=== PATIENT | female | born 1940 | race Caucasian/White ===

== ENCOUNTER → 2017-01-02 | Outpatient (CLI) | payer MEDICARE, OTHER ==
[~2017-01-02] MED LIST: ASPIRIN81 MG PO; BENTYL20 MG PO; BREO ELLIPTA 11 EACH INH; CALTRATE 600 WI1 TAB PO; CELEBREX200 MG PO; CENTRUM CHEWAB1 EACH PO; CENTRUM SILVER1 EAC1 PO; CLARITIN-D 121 EACH PO; COLESTID1 G1 PO; CYMBALTA30 MG PO; ESTRACE0.5 MG PO; FISH OIL1 GM PO; FLONASE16 GM NASBOTH; KLONOPIN1 MG PO; LAMICTAL200 MG PO; LIPITOR10 MG PO; MS CONTIN30 MG PO; NORVASC5 MG PO; PERCOCET 325-51 TAB PO; PLAQUENIL200 MG PO; PROAIR HFA8.5 GM INH; PROLIA60 MG/1 ML SUBCUT; PROTONIX40 M1 PO; PROVENTIL2.5 MG/3 M INH; SEROQUEL25 MG PO; SYNTHROID25 MCG PO; SYSTANE 0.3-0.440 ML EYEBOTH; ULTRAM50 MG PO; VITAMIN D31000 UNI1 PO; XIFAXAN200 MG PO
== END | disposition short-term general hospital (02) ==
LOC: CLPAIN 10:21
DX: M48.06 Spinal stenosis, lumbar region (principal); M47.816 Spondylosis without myelopathy or radiculopathy, lumbar region; M70.70 Other bursitis of hip, unspecified hip; Z79.891 Long term (current) use of opiate analgesic

== ENCOUNTER 2017-01-16 14:00 | Day surgery (SDC) | payer MEDICARE, OTHER ==
[~2017-01-16 14:00] MED LIST changes: -CENTRUM SILVER1 EAC1 PO; -NORVASC5 MG PO; -PROVENTIL2.5 MG/3 M INH; -SEROQUEL25 MG PO; -ULTRAM50 MG PO; -XIFAXAN200 MG PO
[2017-04-28] MEDS ORDERED: ULTRAM50 MG PO (01:58)
[2017-04-28] MEDS ORDERED: PROVENTIL2.5 MG/3 M INH (01:59)
[2017-04-28] MEDS ORDERED: SEROQUEL25 MG PO (02:00)
[2017-05-22] MEDS ORDERED: CENTRUM SILVER1 EAC1 PO (15:49)
[2017-05-23] MEDS ORDERED: XIFAXAN200 MG PO (13:37)
[2017-05-23] MEDS ORDERED: BREO ELLIPTA 11 EACH INH (13:51)
== END 2017-01-16 16:12 | disposition short-term general hospital (02) ==
LOC: SURGOP 14:00
PROC: 3E0U3BZ Introduction of Anesthetic Agent into Joints, Percutaneous Approach (ICD-10-PCS; principal; 2017-01-16)
PROC: 3E0U33Z Introduction of Anti-inflammatory into Joints, Percutaneous Approach (ICD-10-PCS; 2017-01-16)
DX: M70.71 Other bursitis of hip, right hip (principal); M70.72 Other bursitis of hip, left hip; F41.9 Anxiety disorder, unspecified; M19.90 Unspecified osteoarthritis, unspecified site; M47.816 Spondylosis without myelopathy or radiculopathy, lumbar region; G89.28 Other chronic postprocedural pain
CPT/HCPCS: J1040; J3301; Q9967

== ENCOUNTER 2017-01-23 19:23 | Emergency (ER) | payer MEDICARE, OTHER ==
[~2017-01-23] VITALS: Ht 147.3 cm; Wt 50.3 kg
[2017-04-28] MEDS ORDERED: ULTRAM50 MG PO (01:58)
[2017-04-28] MEDS ORDERED: PROVENTIL2.5 MG/3 M INH (01:59)
[2017-04-28] MEDS ORDERED: SEROQUEL25 MG PO (02:00)
[2017-05-22] MEDS ORDERED: CENTRUM SILVER1 EAC1 PO (15:49)
[2017-05-23] MEDS ORDERED: XIFAXAN200 MG PO (13:37)
[2017-05-23] MEDS ORDERED: BREO ELLIPTA 11 EACH INH (13:51)
== END 2017-01-23 21:00 | disposition short-term general hospital (02) ==
LOC: ER 19:23
DX: S12.000A Unspecified displaced fracture of first cervical vertebra, initial encounter for closed fracture (principal); S00.03XA Contusion of scalp, initial encounter; S50.312A Abrasion of left elbow, initial encounter; S50.311A Abrasion of right elbow, initial encounter; S40.212A Abrasion of left shoulder, initial encounter; S40.211A Abrasion of right shoulder, initial encounter; W10.9XXA Fall (on) (from) unspecified stairs and steps, initial encounter; Z79.82 Long term (current) use of aspirin; Z79.899 Other long term (current) drug therapy; J44.9 Chronic obstructive pulmonary disease, unspecified; F32.9 Major depressive disorder, single episode, unspecified; F41.9 Anxiety disorder, unspecified; K21.9 Gastro-esophageal reflux disease without esophagitis; E78.00 Pure hypercholesterolemia, unspecified; I10 Essential (primary) hypertension; E03.9 Hypothyroidism, unspecified; M19.90 Unspecified osteoarthritis, unspecified site; M10.9 Gout, unspecified; Z87.891 Personal history of nicotine dependence
CPT/HCPCS: J2270

== ENCOUNTER 2017-01-31 12:42 | Emergency (ER) | payer MEDICARE, OTHER ==
[~2017-01-31] VITALS: Ht 154.9 cm; Wt 50.3 kg
[2017-04-28] MEDS ORDERED: ULTRAM50 MG PO (01:58)
[2017-04-28] MEDS ORDERED: PROVENTIL2.5 MG/3 M INH (01:59)
[2017-04-28] MEDS ORDERED: SEROQUEL25 MG PO (02:00)
[2017-05-22] MEDS ORDERED: CENTRUM SILVER1 EAC1 PO (15:49)
[2017-05-23] MEDS ORDERED: XIFAXAN200 MG PO (13:37)
[2017-05-23] MEDS ORDERED: BREO ELLIPTA 11 EACH INH (13:51)
== END 2017-01-31 13:22 | disposition short-term general hospital (02) ==
LOC: ER 12:42
DX: R53.1 Weakness (principal); R52 Pain, unspecified; S12.000D Unspecified displaced fracture of first cervical vertebra, subsequent encounter for fracture with routine healing; J44.9 Chronic obstructive pulmonary disease, unspecified; F32.9 Major depressive disorder, single episode, unspecified; F41.9 Anxiety disorder, unspecified; E78.5 Hyperlipidemia, unspecified; I10 Essential (primary) hypertension; E03.9 Hypothyroidism, unspecified; Z90.49 Acquired absence of other specified parts of digestive tract; Z90.710 Acquired absence of both cervix and uterus; Z98.890 Other specified postprocedural states; Z87.891 Personal history of nicotine dependence; Z88.5 Allergy status to narcotic agent; Z88.2 Allergy status to sulfonamides; Z88.1 Allergy status to other antibiotic agents; Z88.8 Allergy status to other drugs, medicaments and biological substances; Z79.899 Other long term (current) drug therapy; Z79.82 Long term (current) use of aspirin; W18.30XA Fall on same level, unspecified, initial encounter

== ENCOUNTER → 2017-02-20 | Outpatient (CLI) | payer MEDICARE, OTHER ==
[~2017-02-20] MED LIST changes: +CENTRUM SILVER1 EAC1 PO; +NORVASC5 MG PO; +PROVENTIL2.5 MG/3 M INH; +SEROQUEL25 MG PO; +ULTRAM50 MG PO; +XIFAXAN200 MG PO
== END | disposition short-term general hospital (02) ==
LOC: CLPAIN 01:08
DX: M70.70 Other bursitis of hip, unspecified hip (principal); M48.06 Spinal stenosis, lumbar region; M47.816 Spondylosis without myelopathy or radiculopathy, lumbar region; G89.28 Other chronic postprocedural pain

== ENCOUNTER → 2017-02-23 | Outpatient (CLI) | payer MEDICARE, OTHER | END | disposition short-term general hospital (02) | LOC: CLNEUR 10:12 | DX: S12.000D Unspecified displaced fracture of first cervical vertebra, subsequent encounter for fracture with routine healing (principal); S13.140D Subluxation of C3/C4 cervical vertebrae, subsequent encounter; M47.892 Other spondylosis, cervical region ==

== ENCOUNTER → 2017-03-31 | Outpatient (CLI) | payer MEDICARE, OTHER | END | disposition short-term general hospital (02) | LOC: CLENT 08:49 | DX: J31.0 Chronic rhinitis (principal); J44.9 Chronic obstructive pulmonary disease, unspecified; Z72.0 Tobacco use ==

== ENCOUNTER 2017-04-03 12:28 | Day surgery (SDC) | payer MEDICARE, OTHER ==
[~2017-04-03 12:28] MED LIST changes: -CENTRUM SILVER1 EAC1 PO; -NORVASC5 MG PO; -PROVENTIL2.5 MG/3 M INH; -SEROQUEL25 MG PO; -ULTRAM50 MG PO; -XIFAXAN200 MG PO
[2017-04-28] MEDS ORDERED: ULTRAM50 MG PO (01:58)
[2017-04-28] MEDS ORDERED: PROVENTIL2.5 MG/3 M INH (01:59)
[2017-04-28] MEDS ORDERED: SEROQUEL25 MG PO (02:00)
[2017-05-22] MEDS ORDERED: CENTRUM SILVER1 EAC1 PO (15:49)
[2017-05-23] MEDS ORDERED: XIFAXAN200 MG PO (13:37)
[2017-05-23] MEDS ORDERED: BREO ELLIPTA 11 EACH INH (13:51)
== END 2017-04-03 13:53 | disposition short-term general hospital (02) ==
LOC: SURGOP 12:28
PROC: 3E0U3BZ Introduction of Anesthetic Agent into Joints, Percutaneous Approach (ICD-10-PCS; principal; 2017-04-03)
PROC: 3E0U33Z Introduction of Anti-inflammatory into Joints, Percutaneous Approach (ICD-10-PCS; 2017-04-03)
DX: M70.71 Other bursitis of hip, right hip (principal); M19.90 Unspecified osteoarthritis, unspecified site; G89.28 Other chronic postprocedural pain; M48.06 Spinal stenosis, lumbar region; M47.816 Spondylosis without myelopathy or radiculopathy, lumbar region; J44.9 Chronic obstructive pulmonary disease, unspecified; K21.9 Gastro-esophageal reflux disease without esophagitis; E78.00 Pure hypercholesterolemia, unspecified; I10 Essential (primary) hypertension; E03.9 Hypothyroidism, unspecified; M81.0 Age-related osteoporosis without current pathological fracture; Z88.6 Allergy status to analgesic agent; Z87.891 Personal history of nicotine dependence; Z88.1 Allergy status to other antibiotic agents; Z88.2 Allergy status to sulfonamides; Z79.82 Long term (current) use of aspirin; Z79.891 Long term (current) use of opiate analgesic; Z79.899 Other long term (current) drug therapy
CPT/HCPCS: J1040

== ENCOUNTER 2017-04-09 14:21 | Emergency (ER) | payer MEDICARE, OTHER ==
[~2017-04-09] VITALS: Ht 137.2 cm; Wt 49.9 kg
[2017-04-09] MEDS ORDERED: NORVASC5 MG PO (16:26)
[2017-04-28] MEDS ORDERED: ULTRAM50 MG PO (01:58)
[2017-04-28] MEDS ORDERED: PROVENTIL2.5 MG/3 M INH (01:59)
[2017-04-28] MEDS ORDERED: SEROQUEL25 MG PO (02:00)
[2017-05-22] MEDS ORDERED: CENTRUM SILVER1 EAC1 PO (15:49)
[2017-05-23] MEDS ORDERED: XIFAXAN200 MG PO (13:37)
[2017-05-23] MEDS ORDERED: BREO ELLIPTA 11 EACH INH (13:51)
== END 2017-04-09 16:07 | disposition short-term general hospital (02) ==
LOC: ER 14:21
DX: R20.2 Paresthesia of skin (principal); I10 Essential (primary) hypertension; F41.9 Anxiety disorder, unspecified; F17.200 Nicotine dependence, unspecified, uncomplicated; Z88.5 Allergy status to narcotic agent; Z88.1 Allergy status to other antibiotic agents; Z88.8 Allergy status to other drugs, medicaments and biological substances; Z88.2 Allergy status to sulfonamides; J44.9 Chronic obstructive pulmonary disease, unspecified; K21.9 Gastro-esophageal reflux disease without esophagitis; E78.00 Pure hypercholesterolemia, unspecified; E03.9 Hypothyroidism, unspecified; M19.90 Unspecified osteoarthritis, unspecified site; M81.0 Age-related osteoporosis without current pathological fracture; G25.81 Restless legs syndrome; M06.9 Rheumatoid arthritis, unspecified

== ENCOUNTER → 2017-07-06 | Outpatient (CLI) | payer MEDICARE, OTHER ==
[~2017-07-06] MED LIST changes: +CENTRUM SILVER1 EAC1 PO; +NORVASC5 MG PO; +PROVENTIL2.5 MG/3 M INH; +SEROQUEL25 MG PO; +ULTRAM50 MG PO; +XIFAXAN200 MG PO
== END | disposition short-term general hospital (02) ==
LOC: CLNEUR 12:33
DX: S12.000D Unspecified displaced fracture of first cervical vertebra, subsequent encounter for fracture with routine healing (principal)